=== PATIENT | male | born 1940 | race Caucasian/White ===

== ENCOUNTER 2017-09-01 18:58 | Emergency (ER) | payer MEDICARE, BC ==
--- NOTE | 2017-09-01 19:41 | EDM.PDOC ---
ED HPI GENERAL MEDICAL PROBLEM - General Chief Complaint: Chest Pain Stated Complaint: HEART Time Seen by Provider: 09/01/17 19:15 Source of Information: Reports: Patient, Family History Limitations: Reports: No Limitations - History of Present Illness INITIAL COMMENTS - FREE TEXT/NARRATIVE: 73-year-old male with known coronary artery disease, had an angiogram with stent placement just over one month ago, a follow-up evaluation after chest pain recurred and he had 3 additional stents placed one week ago. He was increasing activity today with a brisk walk, was sitting in a hot tub tonight and had some wine and developed upper back and posterior neck discomfort. No shortness of breath, no diaphoresis, no chest discomfort initially, however when the neck pain started to calm down he had a localized upper right anterior chest discomfort. It was not pleuritic in nature, did not worsen with activity or movement. He called the nurse hotline and they told him to come in to be checked. His pain basically resolved on the way in. When he arrived he was stable, normal vitals, his initial EKG showed no significant ST changes. He was in a sinus rhythm. No nausea or vomiting, denies abdominal pain, jaw pain, extremity discomfort. Onset: Sudden Right Chest Pain Score (Numeric/FACES): 1 - Related Data Allergies Allergy/AdvReac Type Severity Reaction Status Date / Time tamsulosin [From Flomax] Allergy Itching Verified 09/01/17 19:05 valsartan [From Diovan] Allergy Rash Verified 09/01/17 19:05 Home Meds: Home Meds Alfuzosin [Uroxatral] 10 mg PO DAILY 08/31/16 [History] Aspirin [Adult Low Dose Aspirin EC] 162 mg PO DAILY 08/31/16 [History] Simvastatin [Simvastatin] 40 mg PO BEDTIME 08/31/16 [History] Clopidogrel [Plavix] 75 mg PO DAILY 09/01/17 [History] Diazepam [Valium] 5 mg PO DAILY PRN 09/01/17 [History] Magnesium 450 mg PO DAILY 09/01/17 [History] Nitroglycerin [Nitrostat] 0.4 mg SL ASDIRECTED PRN 09/01/17 [History] Past Medical History HEENT History: Reports: Hard of Hearing, Impaired Vision Cardiovascular History: Reports: High Cholesterol, [place], Stents Gastrointestinal History: Reports: Colon Polyp Genitourinary History: Reports: Prostate Disorder Musculoskeletal History: Reports: Arthritis, Back Pain, Chronic, Gout Neurological History: Reports: Concussion Oncologic (Cancer) History: Reports: Basal Cell Carcinoma - Infectious Disease History Infectious Disease History: Reports: Chicken Pox, Measles - Past Surgical History HEENT Surgical History: Reports: Cataract Surgery, Tonsillectomy Cardiovascular Surgical History: Reports: Coronary Artery Stent GI Surgical History: Reports: Appendectomy, Colonoscopy, Polypectomy, Other ( See Below) Other GI Surgeries/Procedures: partial colectomy (12inches) Male Surgical History: Reports: TURP-Transurethral Resection of Prostate Musculoskeletal Surgical History: Reports: Shoulder Surgery Social & Family History - Tobacco Use Smoking Status *Q: Never Smoker - Caffeine Use Caffeine Use: Reports: Coffee - Alcohol Use Days Per Week of Alcohol Use: 7 Number of Drinks Per Day: 2 Total Drinks Per Week: 14 - Recreational Drug Use Recreational Drug Use: No ED ROS GENERAL - Review of Systems Review Of Systems: See Below Constitutional: Denies: Fever, Chills HEENT: Reports: No Symptoms Respiratory: Denies: Shortness of Breath, Pleuritic Chest Pain Cardiovascular: Reports: Chest Pain GI/Abdominal: Denies: Abdominal Pain, Nausea, Vomiting : Reports: No Symptoms Musculoskeletal: Reports: Neck Pain, Back Pain Skin: Reports: No Symptoms. Denies: Pallor, Diaphoresis Neurological: Reports: No Symptoms. Denies: Headache ED EXAM, GENERAL - Physical Exam Exam: See Below Exam Limited By: No Limitations General Appearance: Alert, No Apparent Distress Eye Exam: Bilateral Eye: Normal Inspection Neck: Normal Inspection, Other (No pain with palpation or range of motion) Respiratory/Chest: No Respiratory Distress, Lungs Clear, Chest Non-Tender (I cannot reproduce chest pain with palpation) Cardiovascular: Regular Rate, Rhythm GI/Abdominal: Soft, Non-Tender Extremities: Normal Inspection. No: Pedal Edema Neurological: Alert, Oriented Psychiatric: Normal Affect, Normal Mood Skin Exam: Warm, Dry EKG INTERPRETATION Rhythm: NSR Course - Vital Signs Last Recorded V/S: Last Vital Signs Temp 97.5 F 09/01/17 19:42 Pulse 67 09/01/17 23:15 Resp 13 09/01/17 23:15 BP 142/73 H 09/01/17 23:15 Pulse Ox 95 09/01/17 23:15 - Orders/Labs/Meds Orders: Active Orders 24 hr Category Date Time Status Chest 1V Frontal [CR] Stat Exams 09/01/17 19:36 Taken Labs: Laboratory Tests 09/01/17 09/01/17 09/01/17 Range/Units 19:48 19:48 23:02 WBC 6.4 (4.5-11.0) K/uL RBC 4.22 L (4.30-5.90) M/uL Hgb 13.4 (12.0-15.0) g/dL Hct 40.3 (40.0-54.0) % MCV 96 (80-98) fL MCH 32 H (27-31) pg MCHC 33 (32-36) % Plt Count 178 (150-400) K/uL Neut % (Auto) 47 (36-66) % Lymph % (Auto) 38 (24-44) % Cross % (Auto) 11 H (2-6) % Eos % (Auto) 3 (2-4) % Baso % (Auto) 1 (0-1) % Sodium 145 (140-148) mmol/L Potassium 3.7 (3.6-5.2) mmol/L Chloride 109 H (100-108) mmol/L Carbon Dioxide 28 (21-32) mmol/L Anion Gap 11.7 (5.0-14.0) mmol/L BUN 19 H (7-18) mg/dL Creatinine 1.0 (0.8-1.3) mg/dL Est Cr Clr Drug Dosing 72.76 mL/min Estimated GFR (MDRD) > 60 (>60) Glucose 109 H (74-106) mg/dL Calcium 9.0 (8.5-10.1) mg/dL Troponin I 0.252 H* 0.250 H* (0.000-0.056) ng/mL - Re-Assessments/Exams Free Text/Narrative Re-Assessment/Exam: 09/01/17 19:53 EKG was normal, patient's symptoms had resolved. A 1 view chest x-ray was obtained to rule out any small pneumothorax or pulmonary injury from his recent procedures. Also jesus a CBC BMP and troponin. Patient was observed but no treatment given pending lab and x-ray results. 09/01/17 21:50 The patient's pain did not recur however the troponin came back elevated at 0.252. I discussed this with cardiology in [place], with a procedure he had one week ago this could be expected but they recommended a repeat troponin in 4 hours. Patient was observed for 4 hours while waiting for the repeat troponin. 09/01/17 23:33 Repeat troponin was 0.250. Patient's symptoms did not recur so he was discharged home. Departure - Departure Time of Disposition: 23:53 Disposition: Home, Self-Care 01 Condition: Good Clinical Impression: Atypical chest pain - Discharge Information Instructions: Nonspecific Chest Pain, [id number] Referrals: Trey Martinez MD [Primary Care Provider] - Forms: ED Department Discharge Care Plan Goals: Continue your current medications and increase activity as tolerated. Recheck as scheduled or return anytime sooner if worsening or concerns. - My Orders Last 24 Hours: My Active Orders 09/01/17 19:36 Chest 1V Frontal [CR] Stat - Assessment/Plan Last 24 Hours: My Active Orders 09/01/17 19:36 Chest 1V Frontal [CR] Stat
[2017-09-01 23:53] VITALS: BP 142/73
--- NOTE | 2017-09-02 09:02 | CR ---
Chest 1V Frontal HISTORY: Upper chest pain. COMPARISON: 05/29/2011. FINDINGS: Stable elevation of the left hemidiaphragm. Rotated film. No focal infiltrates or effusions . No pneumothorax. Impression: Stable chest no acute pulmonary disease.
== END 2017-09-01 23:54 | disposition home or self-care (01) ==
LOC: JP.ED 18:58
DX: R07.89 Other chest pain (principal); I25.10 Atherosclerotic heart disease of native coronary artery without angina pectoris; E78.00 Pure hypercholesterolemia, unspecified; Z95.5 Presence of coronary angioplasty implant and graft; Z79.82 Long term (current) use of aspirin; Z79.02 Long term (current) use of antithrombotics/antiplatelets; Z79.899 Other long term (current) drug therapy; Z88.8 Allergy status to other drugs, medicaments and biological substances
CPT/HCPCS: 36415; 71010; 71010-26; 80048; 84484; 85025; 93005; 93010; 99285

== ENCOUNTER 2019-09-05 07:20 | Emergency (ER) | payer MEDICARE, BC ==
[2019-09-05 07:56] VITALS: BP 170/94; PULSE 60
[2019-09-05] MEDS ORDERED: Ketorolac 30 MG/ML SDV IM ONE (08:10)
--- NOTE | 2019-09-05 08:16 | EDM.PDOC ---
ED HPI GENERAL MEDICAL PROBLEM - General Chief Complaint: Lower Extremity Injury/Pain Stated Complaint: LEFT HIP PAIN Time Seen by Provider: 09/05/19 08:00 Source of Information: Reports: Patient, Old Records, RN History Limitations: Reports: No Limitations - History of Present Illness INITIAL COMMENTS - FREE TEXT/NARRATIVE: 78 yo male was at [employer] yesterday late afternoon and bent over to genuflect and felt a pop in his L hip. Initially he was unable to bear any weight in that hip, the pain bothered him all night. The pain is slightly better this morning. He has never had surgery or significant pain in that hip before. He took nothing for the pain before coming in to the ER with his via car today. 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: Other (see below) (none) Left Hip Pain Score (Numeric/FACES): 1 - Related Data Allergies Allergy/AdvReac Type Severity Reaction Status Date / Time tamsulosin [From Flomax] Allergy Itching Verified 09/11/18 10:08 valsartan [From Diovan] Allergy Rash Verified 09/11/18 10:08 Home Meds: Home Meds Aspirin [Adult Low Dose Aspirin EC] 162 mg PO DAILY 08/31/16 [History] Simvastatin 40 mg PO BEDTIME 08/31/16 [History] Diazepam [Valium] 5 mg PO DAILY PRN 09/01/17 [History] Magnesium 450 mg PO DAILY 09/01/17 [History] Nitroglycerin [Nitrostat] 0.4 mg SL ASDIRECTED PRN 09/01/17 [History] Acetaminophen/HYDROcodone [[place] 325-5 MG] 1 - 2 tab PO Q6H 09/11/18 [History] Past Medical History HEENT History: Reports: Hard of Hearing, Impaired Vision Cardiovascular History: Reports: High Cholesterol, [place], Stents Gastrointestinal History: Reports: Colon Polyp Genitourinary History: Reports: Prostate Disorder Musculoskeletal History: Reports: Arthritis, Back Pain, Chronic, Gout Neurological History: Reports: Concussion Oncologic (Cancer) History: Reports: Basal Cell Carcinoma - Infectious Disease History Infectious Disease History: Reports: Chicken Pox, Measles - Past Surgical History HEENT Surgical History: Reports: Cataract Surgery, Tonsillectomy Cardiovascular Surgical History: Reports: Coronary Artery Stent GI Surgical History: Reports: Appendectomy, Colonoscopy, Polypectomy, Other ( See Below) Other GI Surgeries/Procedures: partial colectomy (12inches) Male Surgical History: Reports: TURP-Transurethral Resection of Prostate Musculoskeletal Surgical History: Reports: Shoulder Surgery Social & Family History - Tobacco Use Smoking Status *Q: Former Smoker Used Tobacco, but Quit: Yes Month/Year Tobacco Last Used: many years ago - Caffeine Use Caffeine Use: Reports: Coffee - Recreational Drug Use Recreational Drug Use: No Review of Systems - Review of Systems Review Of Systems: Comprehensive ROS is negative, except as noted in HPI. Musculoskeletal: Reports: Joint Pain (L hip) Skin: Reports: No Symptoms Neurological: Reports: No Symptoms ED EXAM, GENERAL - Physical Exam Exam: See Below Exam Limited By: No Limitations General Appearance: Alert, WD/WN, No Apparent Distress Extremities: Normal Inspection, Normal Range of Motion, No Pedal Edema, Other ( Able to put the L hip through a fairly full ROM, there is some pain with this. According to patient much less than it would have been earlier. ). No: Non- Tender, Joint Swelling, Limited Range of Motion Neurological: Alert, Oriented, CN II-XII Intact, Normal Cognition, No Motor/ Sensory Deficits Course - Vital Signs Last Recorded V/S: Last Vital Signs Temp 35.2 C 09/05/19 08:09 Pulse 60 09/05/19 08:09 Resp 13 09/05/19 08:09 BP 170/94 H 09/05/19 08:09 Pulse Ox 94 L 09/05/19 08:09 - Orders/Labs/Meds Meds: Medications Discontinued Medications Generic Name Dose Route Start Last Admin Trade Name Freq PRN Reason Stop Dose Admin Ketorolac Tromethamine 30 mg 09/05/19 08:10 09/05/19 08:15 Toradol IM 09/05/19 08:11 30 mg ONETIME ONE Administration - Radiology Interpretation Free Text/Narrative:: L hip X-ray- IMPRESSION: Negative left hip. Dictated by Berny Eli MD Departure - Departure Time of Disposition: :17 Disposition: Home, Self-Care 01 Condition: Good Clinical Impression: Left hip pain - Discharge Information *PRESCRIPTION DRUG MONITORING PROGRAM REVIEWED*: No *COPY OF PRESCRIPTION DRUG MONITORING REPORT IN PATIENT STEPHANY: No Referrals: Trey Martinez MD [Primary Care Provider] - Forms: ED Department Discharge Additional Instructions: Rest for a couple days. Use ibuprofen 400 mg every 6 hrs with food for a couple days, next dose after 2 pm today. Recheck in the clinic if your pain is not completely gone by Friday.
--- NOTE | 2019-09-05 09:11 | CRLCR ---
INDICATION: Left hip pain. TECHNIQUE: Two views of the left hip. COMPARISON: None. FINDINGS: Normal joint space. No chondrocalcinosis or erosive change. IMPRESSION: Negative left hip. Dictated by Berny Eli MD @ Sep 05 2019 9:10AM Signed by Dr. Berny Eli @ Sep 05 2019 9:11AM
== END 2019-09-05 09:45 | disposition home or self-care (01) ==
LOC: JP.ED 07:20
DX: M25.552 Pain in left hip (principal); I25.2 Old myocardial infarction; E78.00 Pure hypercholesterolemia, unspecified; Z88.8 Allergy status to other drugs, medicaments and biological substances; Z79.82 Long term (current) use of aspirin; Z79.899 Other long term (current) drug therapy; Z85.828 Personal history of other malignant neoplasm of skin; X50.1XXA Overexertion from prolonged static or awkward postures, initial encounter
CPT/HCPCS: 73502; 96372; 99283; J1885; 99282

== ENCOUNTER 2020-06-27 12:15 | Emergency (ER) | payer MEDICARE, BC ==
[2020-06-27] MEDS ORDERED: Aspirin 81 MG Tab.Chew PO ONE (12:22)
--- NOTE | 2020-06-27 12:28 | EDM.PDOC ---
ED HPI GENERAL MEDICAL PROBLEM - General Chief Complaint: Chest Pain Stated Complaint: CHEST PAIN Time Seen by Provider: 06/27/20 12:22 Source of Information: Reports: Patient, RN Notes Reviewed History Limitations: Reports: No Limitations - History of Present Illness INITIAL COMMENTS - FREE TEXT/NARRATIVE: 79-year-old gentleman presents emergency department with a complaint of chest pain, he states that chest pain on and off for the last 10 days or so very brief moments but today the chest pain was more intense predominantly in the epigastric region there is no shortness of breath no nausea vomiting no diaphoresis with this chest pain. Does have a known history of coronary artery disease last stenting a couple years ago. He did take 3 nitro no aspirin rates his chest pain at 1 at this time Chest Pain Score (Numeric/FACES): 1 - Related Data Allergies Allergy/AdvReac Type Severity Reaction Status Date / Time tamsulosin [From Flomax] Allergy Itching Verified 06/27/20 12:28 valsartan [From Diovan] Allergy Rash Verified 06/27/20 12:28 Home Meds: Home Meds Aspirin [Adult Low Dose Aspirin EC] 81 mg PO DAILY 08/31/16 [History] Simvastatin 40 mg PO DAILY 08/31/16 [History] Magnesium 450 mg PO DAILY 09/01/17 [History] Nitroglycerin [Nitrostat] 0.4 mg SL ASDIRECTED PRN 09/01/17 [History] diazePAM [Valium] 5 mg PO DAILY PRN 09/01/17 [History] Acetaminophen/HYDROcodone [[place] 325-5 MG] 1 - 2 tab PO Q6H 09/11/18 [History] Alfuzosin HCl [Alfuzosin HCl ER] 10 mg PO DAILY 06/27/20 [History] hydroCHLOROthiazide [Hydrochlorothiazide] 25 mg PO DAILY 06/27/20 [History] Past Medical History HEENT History: Reports: Hard of Hearing, Impaired Vision Cardiovascular History: Reports: CAD, High Cholesterol, [place], Stents Gastrointestinal History: Reports: Colon Polyp Genitourinary History: Reports: Prostate Disorder Musculoskeletal History: Reports: Arthritis, Back Pain, Chronic, Gout Neurological History: Reports: Concussion Oncologic (Cancer) History: Reports: Basal Cell Carcinoma - Infectious Disease History Infectious Disease History: Reports: Chicken Pox, Measles - Past Surgical History HEENT Surgical History: Reports: Cataract Surgery, Tonsillectomy Cardiovascular Surgical History: Reports: Coronary Artery Stent GI Surgical History: Reports: Appendectomy, Colonoscopy, Polypectomy, Other (See Below) Other GI Surgeries/Procedures: partial colectomy (12inches) Male Surgical History: Reports: TURP-Transurethral Resection of Prostate Musculoskeletal Surgical History: Reports: Shoulder Surgery Social & Family History - Caffeine Use Caffeine Use: Reports: Coffee ED ROS GENERAL - Review of Systems Review Of Systems: See Below Constitutional: Reports: No Symptoms HEENT: Reports: No Symptoms Respiratory: Reports: No Symptoms Cardiovascular: Reports: Chest Pain GI/Abdominal: Reports: No Symptoms : Reports: No Symptoms Musculoskeletal: Reports: No Symptoms ED EXAM, GENERAL - Physical Exam Exam: See Below Exam Limited By: No Limitations General Appearance: Alert, WD/WN, No Apparent Distress Respiratory/Chest: No Respiratory Distress, Lungs Clear, Normal Breath Sounds, No Accessory Muscle Use, Chest Non-Tender Cardiovascular: Regular Rate, Rhythm, No Murmur GI/Abdominal: Normal Bowel Sounds, Soft, No Distention, Tender (Epigastric region) Extremities: No Pedal Edema Course - Vital Signs Last Recorded V/S: Last Vital Signs Temp 97.6 F 06/27/20 12:15 Pulse 61 06/27/20 15:12 Resp 15 06/27/20 15:12 BP 123/67 06/27/20 15:12 Pulse Ox 93 L 06/27/20 15:12 - Orders/Labs/Meds Orders: Active Orders 24 hr Category Date Time Status Cardiac Monitoring [RC] .As Directed Care 06/27/20 12:22 Active EKG Documentation Completion [RC] ASDIRECTED Care 06/27/20 12:24 Active Morphine Med 06/27/20 12:22 Active 4 mg IVPUSH Q10M PRN EKG 12 Lead [EK] Stat Ther 06/27/20 12:24 Ordered Medication Orders Morphine Sulfate (Morphine) 4 mg IVPUSH Q10M PRN PRN Reason: Chest Pain Stop: 06/28/20 12:22 Last Admin: 06/27/20 14:10 Dose: 4 mg Documented by: Admin: 06/27/20 13:07 Dose: 4 mg Documented by: PREILOR Labs: Laboratory Tests 06/27/20 06/27/20 06/27/20 Range/Units 12:34 12:34 14:36 WBC 7.0 (4.5-11.0) K/uL RBC 4.24 L (4.30-5.90) M/uL Hgb 13.7 (12.0-15.0) g/dL Hct 41.9 (40.0-54.0) % MCV 99 H (80-98) fL MCH 32 H (27-31) pg MCHC 33 (32-36) % Plt Count 224 (150-400) K/uL Neut % (Auto) 61 (36-66) % Lymph % (Auto) 25 (24-44) % [place] % (Auto) 12 H (2-6) % Eos % (Auto) 2 (2-4) % Baso % (Auto) 0 (0-1) % Sodium 141 (140-148) mmol/L Potassium 3.2 L (3.6-5.2) mmol/L Chloride 104 (100-108) mmol/L Carbon Dioxide 26 (21-32) mmol/L Anion Gap 14.2 H (5.0-14.0) mmol/L BUN 17 (7-18) mg/dL Creatinine 1.1 (0.8-1.3) mg/dL Est Cr Clr Drug Dosing 61.23 mL/min Estimated GFR (MDRD) > 60 (>60) Glucose 99 (74-106) mg/dL Calcium 9.1 (8.5-10.1) mg/dL Total Bilirubin 0.6 D (0.2-1.0) mg/dL AST 25 (15-37) U/L ALT 28 (12-78) U/L Alkaline Phosphatase 73 (46-116) U/L Troponin I < 0.017 < 0.017 (0.000-0.056) ng/mL Total Protein 6.3 L (6.4-8.2) g/dL Albumin 3.1 L (3.4-5.0) g/dL Globulin 3.2 (2.3-3.5) g/dL Albumin/Globulin Ratio 1.0 L (1.2-2.2) Meds: Medications Generic Name Dose Route Start Last Admin Trade Name Freq PRN Reason Stop Dose Admin Morphine Sulfate 4 mg 06/27/20 12:22 06/27/20 14:10 Morphine IVPUSH 06/28/20 12:22 4 mg Q10M PRN Administration Chest Pain Discontinued Medications Generic Name Dose Route Start Last Admin Trade Name [place] PRN Reason Stop Dose Admin Aspirin 324 mg 06/27/20 12:22 06/27/20 12:57 Aspirin PO 06/27/20 12:23 324 mg ONETIME ONE Administration - Re-Assessments/Exams Free Text/Narrative Re-Assessment/Exam: 06/27/20 13:39 I did review lab work EKG chest x-ray results with him thus far the work-up has been unrevealing for the etiology of chest pain, his heart score is 4 puts him at moderate risk I did offer him admission however we have no beds at this time he declined transfer therefore we are going to recheck the troponin in a couple of hours and then reevaluate Departure - Departure Time of Disposition: 15:16 Disposition: Home, Self-Care 01 Condition: Fair Clinical Impression: Atypical chest pain Instructions: Nonspecific Chest Pain, Adult Referrals: Trey Martinez MD [Primary Care Provider] - Forms: ED Department Discharge Additional Instructions: Try a product such as Zantac once a day follow-up with your primary care in the next 3 to 5 days for reevaluation, call return to the emergency department worsening of symptoms Sepsis Event Note (ED) - Focused Exam Vital Signs: Vital Signs Temp Pulse Resp BP Pulse Ox 06/27/20 15:12 61 15 123/67 93 L 06/27/20 14:09 58 L 14 115/67 93 L 06/27/20 13:11 69 16 103/63 94 L 06/27/20 12:35 69 16 113/65 95 06/27/20 12:15 97.6 F 77 14 114/75 95 - My Orders Last 24 Hours: My Active Orders 06/27/20 12:22 Cardiac Monitoring [RC] .As Directed Morphine 4 mg IVPUSH Q10M PRN 06/27/20 12:24 EKG Documentation Completion [RC] ASDIRECTED EKG 12 Lead [EK] Stat - Assessment/Plan Last 24 Hours: My Active Orders 06/27/20 12:22 Cardiac Monitoring [RC] .As Directed Morphine 4 mg IVPUSH Q10M PRN 06/27/20 12:24 EKG Documentation Completion [RC] ASDIRECTED EKG 12 Lead [EK] Stat Plan: Assessment Acuity = acute Site and laterality = atypical chest pain Etiology = unknown Manifestations = none Location of injury = Home Lab values = CBC, CMP unremarkable troponin negative x2 EKG demonstrates sinus rhythm there is no ST elevation or depressions appreciated Plan Observe for several hours, I talked to him about hospital admission he declined at this time he is can follow-up with his primary care in the next 3 to 5 days for further evaluation in the meantime he is going to try reflux type medications to see if this helps alleviate his pain it seems to be exacerbated by food lying down or bending over This note was dictated using [employer] voice recognition software please call with any questions on syntax or grammar.
[2020-06-27] MEDS: Morphine 4 MG/ML Syringe IVPUSH PRN ×2 (13:07→14:10)
--- NOTE | 2020-06-27 13:15 | CR ---
CHEST: Portable 06/27/2020 at 12:46 PM CLINICAL HISTORY:Chest pain COMPARISON:2010 FINDINGS: There is chronic elevation left hemidiaphragm. Heart size and pulmonary vascularity are normal. No infiltrate effusion or pneumothorax is. There is some patchy density in left lower lung field. This is likely some patchy atelectasis. Impression: Chronic elevation left hemidiaphragm No acute cardiopulmonary process
[2020-06-27 15:12] VITALS: BP 123/67; PULSE 61
== END 2020-06-27 15:47 | disposition home or self-care (01) ==
LOC: JP.ED 12:15
DX: R07.89 Other chest pain (principal); I25.10 Atherosclerotic heart disease of native coronary artery without angina pectoris; E78.00 Pure hypercholesterolemia, unspecified; I25.2 Old myocardial infarction; M19.90 Unspecified osteoarthritis, unspecified site; Z90.49 Acquired absence of other specified parts of digestive tract; Z88.8 Allergy status to other drugs, medicaments and biological substances; Z79.82 Long term (current) use of aspirin; Z79.899 Other long term (current) drug therapy
CPT/HCPCS: 36415; 71045; 80053; 84484; 85025; 93005; 93010; 96374; 96376; 99285; A9270; J2270; 99284

== ENCOUNTER 2020-07-14 08:15 | Day surgery (SDC) | payer MEDICARE, BC ==
[2020-07-14] MEDS ORDERED: Dextrose 5%-Lactated Ringers 1,000 ML IV SCH (08:45)
[2020-07-14] MEDS ORDERED: Propofol 200 MG/20 ML SDV ONE (08:53)
[2020-07-14] MEDS ORDERED: Midazolam 1 MG/ML 2 ML SDV ONE (08:53)
[2020-07-14] MEDS ORDERED: fentaNYL 100 MCG/2 ML SDV ONE (08:53)
[2020-07-14] MEDS ORDERED: Pantoprazole 40 MG Vial IVPUSH ONE (10:55)
[2020-07-14 11:58] VITALS: BP 138/77; PULSE 67
--- NOTE | 2020-07-20 08:11 | OR ---
DATE OF PROCEDURE: 07/14/2020 SURGEON: Sadiq Hairston MD PREOPERATIVE DIAGNOSIS: Upper abdominal pain. POSTOPERATIVE DIAGNOSES: 1. 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 2. Mild distal gastritis. OPERATIVE PROCEDURE: Esophagogastroduodenoscopy with: 1. Biopsies of esophagogastric junction for histologic evaluation. 2. Biopsies of antrum for CLOtest. ANESTHESIA: IV sedation. INDICATION FOR PROCEDURE: An 79-year-old male, presenting with problems with upper abdominal pain and chest pain. The patient did have a CCK-stimulated HIDA scan which showed below normal ejection fraction, with CCK injection reproducing some nausea, but not overt pain per se. The patient had been started on Pepcid 40 mg b.i.d. roughly 2 weeks and feels this may have helped slightly, but is unsure if this can improve beyond the small additional initial improvement. The plan is proceed with an upper GI endoscopy with biopsies as indicated. Potential risks including bleeding and perforation were discussed, and the patient wishes to proceed. DETAILS OF PROCEDURE: The patient was taken to the operating room and placed in a left lateral decubitus position. IV sedation was administered, after which the upper GI endoscope was passed orally through the length of the esophagus and into the stomach with retroflexion view of the fundus, thereafter through the pyloric channel into the proximal duodenum. Findings included normal hypopharynx, larynx, upper esophageal sphincter, and esophageal body. At the EG junction, there was a small hiatal hernia. 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 There were also 2 areas of linear ulceration present. No stricturing or plaquing or other signs of neoplastic change were obvious. In the stomach, there was some patchy redness in the antrum, otherwise pyloric channel and duodenum to the junction of the 3rd and 4th portions were unremarkable. At this point, biopsies were obtained from the antrum and sent for CLOtest for H. pylori. Multiple biopsies were obtained from the esophagogastric junction and sent for histologic evaluation. Minimal bleeding from the biopsy sites was seen and the procedure was then concluded. At this point, we will switch the patient over to Protonix 40 mg IV in the recovery room and then 40 mg daily. We will see the patient back in roughly 2 weeks. If he is still having episodes of right upper quadrant pain, then may be appropriate at that point to proceed with cholecystectomy given the CCK-stimulated HIDA scan findings. Sadiq Hairston MD /[id number]
== END 2020-07-14 11:59 | disposition home or self-care (01) ==
LOC: JP.SDS 08:15
PROVIDERS: ATTEND Surgery
DX: K25.9 Gastric ulcer, unspecified as acute or chronic, without hemorrhage or perforation (principal); K44.9 Diaphragmatic hernia without obstruction or gangrene; K29.50 Unspecified chronic gastritis without bleeding; K21.00 Gastro-esophageal reflux disease with esophagitis, without bleeding; E78.5 Hyperlipidemia, unspecified; I25.10 Atherosclerotic heart disease of native coronary artery without angina pectoris
CPT/HCPCS: 43239; 87081; 88305; 88312; C9113; J2250; J2704; J3010; J7121

== ENCOUNTER 2022-02-02 13:54 | Observation (INO) | payer MEDICARE, BC ==
[2022-02-02] MEDS ORDERED: Sodium Chloride 0.9% 10 ML Syringe FLUSH PRN (14:03)
[2022-02-02] MEDS ORDERED: fentaNYL 100 MCG/2 ML SDV IVPUSH ONE ×2 (14:05→15:43)
[2022-02-02] MEDS ORDERED: Potassium Chloride 20 MEQ Tab.ER PO ONE (15:01)
[2022-02-02] MEDS ORDERED: Diazepam 5 MG Tab PO PRN (17:44)
[2022-02-02] MEDS ORDERED: LORazepam 2 MG/ML SDV IVPUSH PRN (17:44)
[2022-02-02] MEDS ORDERED: Ondansetron 4 MG Tab.DIS PO PRN (17:44)
[2022-02-02] MEDS ORDERED: Magnesium Hydroxide 400 MG/5 ML Susp 30 ML Cup PO PRN (17:44)
[2022-02-02] MEDS ORDERED: Melatonin 3 MG Tab PO PRN (17:44)
[2022-02-02] MEDS ORDERED: fentaNYL 100 MCG/2 ML SDV IVPUSH PRN (17:44)
[2022-02-02] MEDS ORDERED: Ondansetron 4 MG/2 ML SDV IV PRN (17:44)
[2022-02-02] MEDS ORDERED: tiZANidine 2 MG Tab PO PRN (17:44)
[2022-02-02] MEDS: Acetaminophen 325 MG Tab PO PRN (18:07)
[2022-02-03] MEDS: Acetaminophen 325 MG Tab PO PRN ×4 (00:58→19:46)
[2022-02-03] MEDS ORDERED: Potassium Chloride 20 MEQ Tab.ER PO ONE (09:00)
[2022-02-03] MEDS: Calcium Carbonate/Vitamin D3 1500 MG-400 Units Tab PO SCH (10:06)
[2022-02-03] MEDS: BIOTIN 2500 MCG PO SCH (10:06)
[2022-02-03] MEDS: CHONDROITIN PO SCH (10:08)
[2022-02-03] MEDS: CHOLECALCIFEROL PO SCH (10:08)
[2022-02-03] MEDS: GLUCOSAMINE PO SCH (10:08)
[2022-02-03] MEDS: Aspirin 81 MG Tab.EC PO SCH (10:08)
[2022-02-03] MEDS: Hydrochlorothiazide 25 MG Tab PO SCH (10:09)
[2022-02-03] MEDS: atorvaSTATin 20 MG Tab PO SCH (10:11)
[2022-02-03] MEDS: Magnesium Oxide 400 MG Tab PO SCH (10:12)
[2022-02-03] MEDS: Famotidine 20 MG Tab PO SCH ×2 (10:12→21:50)
[2022-02-03] MEDS: Multivitamins with Iron/Calcium/Folic Acid/Minerals Tab PO SCH (10:13)
[2022-02-03] MEDS: Cyanocobalamin (Vitamin B12) 1,000 MCG Tab PO SCH (10:14)
[2022-02-03] MEDS: Alfuzosin 10 MG Tab.ER PO SCH (10:14)
[2022-02-03] MEDS: CO Q10 PO SCH (10:14)
[2022-02-03] MEDS: Ascorbic Acid 500 MG Tab PO SCH (10:15)
[2022-02-04] MEDS: Hydrochlorothiazide 25 MG Tab PO SCH (10:18)
[2022-02-04] MEDS: Aspirin 81 MG Tab.EC PO SCH (10:20)
[2022-02-04] MEDS: Multivitamins with Iron/Calcium/Folic Acid/Minerals Tab PO SCH (10:20)
[2022-02-04] MEDS: Ascorbic Acid 500 MG Tab PO SCH (10:20)
[2022-02-04] MEDS: Famotidine 20 MG Tab PO SCH ×2 (10:20→20:14)
[2022-02-04] MEDS: Magnesium Oxide 400 MG Tab PO SCH (10:20)
[2022-02-04] MEDS: Alfuzosin 10 MG Tab.ER PO SCH (10:20)
[2022-02-04] MEDS: Cyanocobalamin (Vitamin B12) 1,000 MCG Tab PO SCH (10:21)
[2022-02-04] MEDS: atorvaSTATin 20 MG Tab PO SCH (10:21)
[2022-02-04] MEDS: Calcium Carbonate/Vitamin D3 1500 MG-400 Units Tab PO SCH (10:21)
[2022-02-04] MEDS: BIOTIN 2500 MCG PO SCH (10:22)
[2022-02-04] MEDS: CO Q10 PO SCH (10:23)
[2022-02-04] MEDS: CHOLECALCIFEROL PO SCH (10:23)
[2022-02-04] MEDS: CHONDROITIN PO SCH (10:23)
[2022-02-04] MEDS: GLUCOSAMINE PO SCH (10:23)
[2022-02-04] MEDS: oxyCODONE 5 MG Tab PO PRN (16:09)
[2022-02-04] MEDS: Acetaminophen 325 MG Tab PO PRN ×2 (16:09→20:17)
[2022-02-05] MEDS: Famotidine 20 MG Tab PO SCH (08:31)
[2022-02-05] MEDS: Aspirin 81 MG Tab.EC PO SCH (08:31)
[2022-02-05] MEDS: Multivitamins with Iron/Calcium/Folic Acid/Minerals Tab PO SCH (08:32)
[2022-02-05] MEDS: Hydrochlorothiazide 25 MG Tab PO SCH (08:32)
[2022-02-05] MEDS: atorvaSTATin 20 MG Tab PO SCH (08:32)
[2022-02-05] MEDS: Calcium Carbonate/Vitamin D3 1500 MG-400 Units Tab PO SCH (08:32)
[2022-02-05] MEDS: GLUCOSAMINE PO SCH (08:33)
[2022-02-05] MEDS: CO Q10 PO SCH (08:33)
[2022-02-05] MEDS: CHONDROITIN PO SCH (08:33)
[2022-02-05] MEDS: Magnesium Oxide 400 MG Tab PO SCH (08:33)
[2022-02-05] MEDS: Cyanocobalamin (Vitamin B12) 1,000 MCG Tab PO SCH (08:33)
[2022-02-05] MEDS: BIOTIN 2500 MCG PO SCH (08:33)
[2022-02-05] MEDS: Ascorbic Acid 500 MG Tab PO SCH (08:33)
[2022-02-05] MEDS: CHOLECALCIFEROL PO SCH (08:33)
[2022-02-05] MEDS: Alfuzosin 10 MG Tab.ER PO SCH (08:33)
[2022-02-05] MEDS: oxyCODONE 5 MG Tab PO PRN ×2 (10:27→14:23)
[2022-02-05 11:06] VITALS: BP 110/56; PULSE 82
== END 2022-02-05 16:00 | disposition home health service (06) ==
LOC: JP.ED 13:54 → JP.MS 17:23
PROVIDERS: ADMIT Internal Medicine; ATTEND Hospitalist
DX: S70.02XA Contusion of left hip, initial encounter (principal); I25.10 Atherosclerotic heart disease of native coronary artery without angina pectoris; E78.00 Pure hypercholesterolemia, unspecified; I25.2 Old myocardial infarction; E87.6 Hypokalemia; Z98.890 Other specified postprocedural states; W18.30XA Fall on same level, unspecified, initial encounter; Z88.8 Allergy status to other drugs, medicaments and biological substances; Z79.82 Long term (current) use of aspirin; Z79.899 Other long term (current) drug therapy
CPT/HCPCS: 36415; 73521; 73521-26; 80048; 85025; 85027; 93005; 93010; 96374; 96376; 97110-GP; 97116-GP; 97162-GP; 97165-GO; 97530-GP; 99284; 99285-25; A9270-GY; G0378; J3010

== ENCOUNTER 2023-05-15 06:29 | Day surgery (SDC) | payer MEDICARE, BC ==
[2023-05-15] MEDS ORDERED: Propofol 200 MG/20 ML SDV ONE (07:00)
[2023-05-15] MEDS ORDERED: Dextrose 5%-Lactated Ringers 1,000 ML IV SCH (07:00)
[2023-05-15] MEDS ORDERED: fentaNYL 50 MCG/ML SDV ONE (07:01)
[2023-05-15] MEDS ORDERED: Ampicillin/Sulbactam Na 3 GM in Sodium Chloride 0.9% 100 ML IV ONE (07:30)
[2023-05-15] MEDS ORDERED: Pantoprazole 40 MG Vial IVPUSH ONE (09:00)
[2023-05-15 11:01] VITALS: BP 138/75; PULSE 59
== END 2023-05-15 10:30 | disposition home or self-care (01) ==
LOC: JP.SDS 06:29
PROVIDERS: ATTEND Surgery
DX: K21.00 Gastro-esophageal reflux disease with esophagitis, without bleeding (principal); K44.9 Diaphragmatic hernia without obstruction or gangrene; K22.10 Ulcer of esophagus without bleeding; K29.80 Duodenitis without bleeding; K29.70 Gastritis, unspecified, without bleeding; K22.89 Other specified disease of esophagus; I25.10 Atherosclerotic heart disease of native coronary artery without angina pectoris; E78.00 Pure hypercholesterolemia, unspecified; Z88.8 Allergy status to other drugs, medicaments and biological substances
CPT/HCPCS: 87081; 88305; C9113; J0295; J2704; J3010; J3490; J7121

== ENCOUNTER 2024-03-03 23:03 | Emergency (ER) | payer MEDICARE, BC ==
[2024-03-03 23:22] VITALS: BP 137/62; PULSE 73
== END 2024-03-03 23:41 | disposition home or self-care (01) ==
LOC: JP.ED 23:03
DX: S90.862A Insect bite (nonvenomous), left foot, initial encounter (principal); I25.10 Atherosclerotic heart disease of native coronary artery without angina pectoris; I25.2 Old myocardial infarction; K21.9 Gastro-esophageal reflux disease without esophagitis; Z88.1 Allergy status to other antibiotic agents; Z88.8 Allergy status to other drugs, medicaments and biological substances; Z95.5 Presence of coronary angioplasty implant and graft; Z79.82 Long term (current) use of aspirin; Z79.899 Other long term (current) drug therapy; Z86.16 Personal history of COVID-19; Z87.891 Personal history of nicotine dependence; W57.XXXA Bitten or stung by nonvenomous insect and other nonvenomous arthropods, initial encounter
CPT/HCPCS: 99281; 99283

== ENCOUNTER 2024-06-28 14:06 | Emergency (ER) | payer MEDICARE, BC, OTHER ==
[2024-06-28 15:02] LABS: BASOPHILS ABSOLUTE AUTO 0.02 K/uL (0.00-0.10); BASOPHILS PERCENT AUTO 0.3 % (0.1-1.3); EOSINOPHILS ABSOLUTE AUTO 0.07 K/uL (0.00-0.40); HEMATOCRIT 39.4 % (38.4-49.7); IMMATURE GRAN ABSOLUTE AUTO 0.04 K/uL (0.00-0.23); IMMATURE GRAN PERCENT AUTO 0.6 % (0.0-0.7); LYMPHOCYTES ABSOLUTE AUTO 1.41 K/uL (0.8-3.3); LYMPHOCYTES PERCENT AUTO 20.6 % (11.4-47.7); MEAN CORPUSCULAR HEMOGLOBIN 29.4 pg (31.6-35.5); MEAN CORPUSCULAR VOLUME 89.1 fL (81.4-99.0); MONOCYTES ABSOLUTE AUTO 0.35 K/uL (0.20-0.90); MONOCYTES PERCENT AUTO 5.1 % (3.3-12.6); NEUTROPHILS ABSOLUTE AUTO 4.97 K/uL (1.0-7.6); NEUTROPHILS PERCENT AUTO 72.4 % (40.0-78.1); PLATELET COUNT,PLT 116 K/uL (130-375); RED BLOOD CELL COUNT 4.42 M/uL (4.14-5.76); WHITE BLOOD CELL COUNT,WBC 6.9 K/uL (3.2-11.0)
[2024-06-28 15:18] LABS: CALCIUM 9.5 mg/dL (8.5-10.1); CREATININE 1.1 mg/dL (0.8-1.3); EST CRCL DRUG DOSING (CG) 57.08 mL/min; POTASSIUM,K 3.8 mmol/L (3.6-5.2)
[2024-06-28 15:19] LABS: ANION GAP 12.8 mmol/L (5.0-14.0)
[2024-06-28] MEDS ORDERED: Naloxone 0.4 MG/ML SDV IVPUSH PRN (15:41)
[2024-06-28] MEDS: Iopamidol 612 MG/ML 100 ML Bottle IV PRN (15:54)
[2024-06-28] MEDS: Sodium Chloride 0.9% 100 ML IV ONE (15:54)
[2024-06-28] MEDS: Sodium Chloride 0.9% 10 ML Syringe FLUSH PRN (15:54)
[2024-06-28] MEDS: HYDROmorphone 0.5 MG/0.5 ML Syringe IVPUSH ONE ×2 (15:58→18:52)
[2024-06-28 18:13] VITALS: BP 160/89; PULSE 69
== END 2024-06-28 19:36 | disposition other institution (70) ==
LOC: JP.ED 14:06
DX: S22.42XA Multiple fractures of ribs, left side, initial encounter for closed fracture (principal); I25.10 Atherosclerotic heart disease of native coronary artery without angina pectoris; I25.2 Old myocardial infarction; E78.00 Pure hypercholesterolemia, unspecified; M19.90 Unspecified osteoarthritis, unspecified site; Z86.16 Personal history of COVID-19; Z79.82 Long term (current) use of aspirin; Z79.899 Other long term (current) drug therapy; Z88.8 Allergy status to other drugs, medicaments and biological substances; V87.8XXA Person injured in other specified noncollision transport accidents involving motor vehicle (traffic), initial encounter; Y92.410 Unspecified street and highway as the place of occurrence of the external cause
CPT/HCPCS: 36415; 70450; 71260; 72125; 74177; 76377; 80048; 85025; 96374; 96376; 99284; 99285; J1170; J3490; Q9967

== ENCOUNTER 2024-12-30 18:15 | Emergency (ER) | payer MEDICARE, BC ==
[2024-12-30 20:16] LABS: HEMATOCRIT 28.7 % (38.4-49.7); HEMOGLOBIN 9.7 g/dL (12.9-16.9); MEAN CORPUSCULAR HEMOGLOBIN 30.9 pg (31.6-35.5); MEAN CORPUSCULAR HGB CONC 33.8 g/dL (31.6-35.5); MEAN CORPUSCULAR VOLUME 91.4 fL (81.4-99.0); PLATELET COUNT,PLT 63 K/uL (130-375); RED BLOOD CELL COUNT 3.14 M/uL (4.14-5.76)
[2024-12-30 20:22] LABS: WHITE BLOOD CELL COUNT,WBC 0.7 K/uL (3.2-11.0)
[2024-12-30 20:30] LABS: CALCIUM 8.7 mg/dL (8.5-10.1); CREATININE 0.9 mg/dL (0.8-1.3); EST CRCL DRUG DOSING (CG) 68.5 mL/min; POTASSIUM,K 3.9 mmol/L (3.6-5.2)
[2024-12-30 20:33] LABS: ANION GAP 12.9 mmol/L (5.0-14.0)
[2024-12-30] MEDS: HYDROmorphone 0.5 MG/0.5 ML Syringe IVPUSH ONE (21:05)
[2024-12-30 21:14] LABS: BAND ABSOLUTE MAN 0.02 K/uL; BAND PERCENT MAN 3 % (5-11); LYMPHOCYTES ABSOLUTE MAN 0.52 K/uL (0.8-3.3); LYMPHOCYTES PERCENT MAN 74 % (24-44); METAMYELOCYTE ABSOLUTE MAN 0.02 K/uL; METAMYELOCYTE PERCENT MAN 3 %; MONOCYTES ABSOLUTE MAN 0.03 K/uL (0.20-0.90); MONOCYTES PERCENT MAN 4 % (2-6); MYELOCYTE ABSOLUTE MAN 0.01; MYELOCYTE PERCENT MAN 1 %; PROMYELOCYTE ABSOLUTE MAN 0.01 K/uL; PROMYELOCYTE PERCENT MAN 1 %; SEG NEUTROPHILS PERCENT MAN 14 % (36-66)
[2024-12-30 21:15] LABS: ANISOCYTOSIS MARKED
[2024-12-30 21:16] LABS: OVALOCYTES FEW
[2024-12-30 21:18] LABS: TEARDROP CELLS FEW
[2024-12-30 21:20] LABS: BURR CELLS OCCASIONAL; MICROCYTOSIS MODERATE
[2024-12-30 21:23] LABS: SPHEROCYTES RARE
[2024-12-30 21:24] LABS: POIKILOCYTOSIS MODERATE
[2024-12-30 21:25] LABS: SCHISTOCYTES RARE
[2024-12-30] MEDS: Iopamidol 612 MG/ML 100 ML Bottle IV SCH (23:36)
[2024-12-30] MEDS: Sodium Chloride 0.9% 100 ML IV SCH (23:37)
[2024-12-30] MEDS: Sodium Chloride 0.9% 10 ML Syringe FLUSH PRN (23:37)
[2024-12-31 00:29] VITALS: BP 151/81; PULSE 79
== END 2024-12-31 01:29 | disposition other institution (70) ==
LOC: JP.ED 18:15
DX: S22.42XA Multiple fractures of ribs, left side, initial encounter for closed fracture (principal); D61.818 Other pancytopenia; I25.10 Atherosclerotic heart disease of native coronary artery without angina pectoris; Z88.8 Allergy status to other drugs, medicaments and biological substances; I25.2 Old myocardial infarction; Z95.5 Presence of coronary angioplasty implant and graft; Z86.16 Personal history of COVID-19; Z79.82 Long term (current) use of aspirin; Z79.899 Other long term (current) drug therapy; Z87.891 Personal history of nicotine dependence; W00.0XXA Fall on same level due to ice and snow, initial encounter; Y93.89 Activity, other specified
CPT/HCPCS: 36415; 70450; 71250; 72125; 73502; 73562; 74177; 76377; 80048; 85025; 96374; 99285; Q9967

== ENCOUNTER 2025-01-05 20:50 | Emergency (ER) | payer MEDICARE, BC ==
[2025-01-05 21:31] LABS: HEMATOCRIT 31.2 % (38.4-49.7); HEMOGLOBIN 10.2 g/dL (12.9-16.9); MEAN CORPUSCULAR HEMOGLOBIN 30.5 pg (31.6-35.5); MEAN CORPUSCULAR HGB CONC 32.7 g/dL (31.6-35.5); MEAN CORPUSCULAR VOLUME 93.4 fL (81.4-99.0); PLATELET COUNT,PLT 82 K/uL (130-375); RED BLOOD CELL COUNT 3.34 M/uL (4.14-5.76)
[2025-01-05 21:53] LABS: WHITE BLOOD CELL COUNT,WBC 0.7 K/uL (3.2-11.0)
[2025-01-05 22:10] LABS: A/G RATIO 0.8 (1.2-2.2); ALANINE AMINOTRANSFERASE,ALT 62 U/L (12-78); ALKALINE PHOSPHATASE 83 U/L (46-116); ANION GAP 10.3 mmol/L (5.0-14.0); ASPARTATE AMNIOTRANSFERASE,AST 59 U/L (15-37); BILIRUBIN TOTAL 0.8 mg/dL (0.2-1.0); BLOOD UREA NITROGEN,BUN 18 mg/dL (7-18); CALCIUM 9.2 mg/dL (8.5-10.1); CARBON DIOXIDE,CO2 25 mmol/L (21-32); CHLORIDE,CL 106 mmol/L (100-108); ESTIMATED GFR 73 mL/min (>60); GLUCOSE RANDOM 138 mg/dL (74-106); POTASSIUM,K 3.6 mmol/L (3.6-5.2); PROTEIN TOTAL,TP 6.8 g/dL (6.4-8.2); SODIUM,NA 141 mmol/L (140-148); TROPONIN I HIGH SENSITIVITY 8.9 pg/mL (<=60.3)
[2025-01-05] MEDS: Albuterol/Ipratropium 3.0-0.5 MG/3 ML Neb Soln NEB ONE (22:13)
[2025-01-05 22:23] LABS: BAND ABSOLUTE MAN 0.01 K/uL; BAND PERCENT MAN 1 % (5-11); LYMPHOCYTES PERCENT MAN 72 % (24-44); MONOCYTES ABSOLUTE MAN 0.01 K/uL (0.20-0.90); MONOCYTES PERCENT MAN 1 % (2-6); NEUTROPHILS ABSOLUTE MAN 0.18 K/uL (1.0-7.6); SEG NEUTROPHILS PERCENT MAN 26 % (36-66)
[2025-01-05 22:24] LABS: ATYPICAL LYMPHOCYTES MODERATE
[2025-01-05] MEDS: Sodium Chloride 0.9% 1,000 ML IV SCH (23:01)
[2025-01-05] MEDS: Piperacillin/Tazobactam 4.5 GM in Sodium Chloride 0.9% 100 ML IV ONE (23:33)
[2025-01-05] MEDS: Acetaminophen 500 MG Tab PO ONE (23:40)
[2025-01-06] MEDS: VANCOmycin 1 GM in Sodium Chloride 0.9% 250 ML IV ONE (00:47)
[2025-01-06] MEDS: Ibuprofen 400 MG Tab PO ONE (02:50)
[2025-01-06 03:04] VITALS: PULSE 95
[2025-01-06 06:35] VITALS: BP 102/52
== END 2025-01-06 08:29 ==
LOC: JP.ED 20:50
DX: A41.9 Sepsis, unspecified organism (principal); J18.9 Pneumonia, unspecified organism; D61.818 Other pancytopenia; I25.10 Atherosclerotic heart disease of native coronary artery without angina pectoris; E78.00 Pure hypercholesterolemia, unspecified; I25.2 Old myocardial infarction; Z88.8 Allergy status to other drugs, medicaments and biological substances; Z79.82 Long term (current) use of aspirin; Z79.51 Long term (current) use of inhaled steroids; Z79.899 Other long term (current) drug therapy; Z95.5 Presence of coronary angioplasty implant and graft; Z86.16 Personal history of COVID-19
CPT/HCPCS: 36415; 71046; 80053; 83605; 83880; 84484; 85025; 87040; 93005; 93010; 94640; 96361; 96365; 96367; 99285; A9270; J2543; J7030; J7050

== ENCOUNTER 2025-02-08 15:10 | Inpatient (IN) | payer MEDICARE, BC ==
[2025-02-08 15:33] LABS: HEMATOCRIT 30.1 % (38.4-49.7); MEAN CORPUSCULAR HEMOGLOBIN 32.7 pg (31.6-35.5); MEAN CORPUSCULAR HGB CONC 33.2 g/dL (31.6-35.5); MEAN CORPUSCULAR VOLUME 98.4 fL (81.4-99.0); PLATELET COUNT,PLT 65 K/uL (130-375); RED BLOOD CELL COUNT 3.06 M/uL (4.14-5.76)
[2025-02-08 15:37] LABS: WHITE BLOOD CELL COUNT,WBC 0.7 K/uL (3.2-11.0)
[2025-02-08 15:52] LABS: A/G RATIO 0.8 (1.2-2.2); ALANINE AMINOTRANSFERASE,ALT 30 U/L (12-78); ALBUMIN 2.7 g/dL (3.4-5.0); ALKALINE PHOSPHATASE 95 U/L (46-116); ASPARTATE AMNIOTRANSFERASE,AST 36 U/L (15-37); BILIRUBIN TOTAL 0.4 mg/dL (0.2-1.0); BLOOD UREA NITROGEN,BUN 11 mg/dL (7-18); CALCIUM 8.7 mg/dL (8.5-10.1); CARBON DIOXIDE,CO2 25 mmol/L (21-32); CHLORIDE,CL 106 mmol/L (100-108); EST CRCL DRUG DOSING (CG) 61.65 mL/min; ESTIMATED GFR 73 mL/min (>60); GLUCOSE RANDOM 107 mg/dL (74-106); POTASSIUM,K 3.7 mmol/L (3.6-5.2); PROTEIN TOTAL,TP 6.2 g/dL (6.4-8.2); SODIUM,NA 139 mmol/L (140-148)
[2025-02-08 15:54] LABS: ANION GAP 11.7 mmol/L (5.0-14.0)
[2025-02-08] MEDS: Cefepime 2 GM in Sodium Chloride 0.9% 50 ML IV ONE (15:58)
[2025-02-08 16:03] LABS: ATYPICAL LYMPHOCYTES MODERATE; BAND ABSOLUTE MAN 0.01 K/uL; BAND PERCENT MAN 1 % (5-11); LYMPHOCYTES ABSOLUTE MAN 0.48 K/uL (0.8-3.3); LYMPHOCYTES PERCENT MAN 69 % (24-44); MONOCYTES ABSOLUTE MAN 0.03 K/uL (0.20-0.90); MONOCYTES PERCENT MAN 4 % (2-6); NEUTROPHILS ABSOLUTE MAN 0.18 K/uL (1.0-7.6); SEG NEUTROPHILS PERCENT MAN 26 % (36-66)
[2025-02-08] MEDS: Levofloxacin/Dextrose 5%-Water 750 MG in Premix Bag 1 BAG IV ONE (17:06)
[2025-02-08] MEDS ORDERED: Sennosides/Docusate Sodium 50-8.6 MG Tab PO PRN (17:32)
[2025-02-08] MEDS ORDERED: Ondansetron 4 MG/2 ML SDV IV PRN (17:32)
[2025-02-08] MEDS ORDERED: LORazepam 0.5 MG Tab PO PRN (17:32)
[2025-02-08] MEDS ORDERED: Ondansetron 4 MG Tab.DIS PO PRN (17:32)
[2025-02-08] MEDS ORDERED: Magnesium Hydroxide 400 MG/5 ML Susp 30 ML Cup PO PRN (17:32)
[2025-02-08] MEDS: Sodium Chloride 0.9% 1,000 ML IV SCH (18:14)
[2025-02-08] MEDS: Acetaminophen 325 MG Tab PO PRN (18:25)
[2025-02-08 18:48] LABS: APPEARANCE,URINE CLEAR (CLEAR); BILIRUBIN,URINE NEGATIVE (NEGATIVE); COLOR,URINE YELLOW (YELLOW); GLUCOSE,URINE NEGATIVE (NEGATIVE); KETONES,URINE NEGATIVE (NEGATIVE); LEUKOCYTE ESTERASE,URINE NEGATIVE (NEGATIVE); NITRITE,URINE NEGATIVE (NEGATIVE); OCCULT BLOOD,URINE NEGATIVE (NEGATIVE); PROTEIN,URINE 30 mg/dL (NEGATIVE); UROBILINOGEN,URINE 0.2 EU/dL (0.2-1.0)
[2025-02-08 18:53] LABS: AMORPHOUS SEDIMENT,URINE NOT SEEN; BACTERIA,URINE FEW; EPITHELIAL CELLS,URINE NOT SEEN; MUCUS,URINE FEW; RBC,URINE 0-5 (0-5); WBC,URINE 0-5 (0-5)
[2025-02-08] MEDS: Lactobacillus Rhamnosus GG (Probiotic) Cap PO SCH (20:06)
[2025-02-08] MEDS: traZODone 50 MG Tab PO SCH (20:06)
[2025-02-08] MEDS: Magnesium Oxide 400 MG Tab PO ONE (20:07)
[2025-02-09] MEDS: Cefepime 2 GM in Sodium Chloride 0.9% 50 ML IV SCH (00:36)
[2025-02-09 05:52] LABS: HEMATOCRIT 27.2 % (38.4-49.7); HEMOGLOBIN 9.1 g/dL (12.9-16.9); MEAN CORPUSCULAR HEMOGLOBIN 33.1 pg (31.6-35.5); MEAN CORPUSCULAR HGB CONC 33.5 g/dL (31.6-35.5); MEAN CORPUSCULAR VOLUME 98.9 fL (81.4-99.0); PLATELET COUNT,PLT 52 K/uL (130-375); RED BLOOD CELL COUNT 2.75 M/uL (4.14-5.76)
[2025-02-09 06:06] LABS: ANION GAP 11.3 mmol/L (5.0-14.0); CALCIUM 8.2 mg/dL (8.5-10.1); CREATININE 0.8 mg/dL (0.8-1.3); EST CRCL DRUG DOSING (CG) 77.06 mL/min; POTASSIUM,K 3.8 mmol/L (3.6-5.2)
[2025-02-09 06:25] LABS: WHITE BLOOD CELL COUNT,WBC 0.7 K/uL (3.2-11.0)
[2025-02-09 06:28] LABS: BLAST ABSOLUTE MAN 0.02 K/uL (0-0); BLASTS PERCENT MAN 3 %; EOSINOPHILS ABSOLUTE MAN 0.01 K/uL (0.00-0.40); EOSINOPHILS PERCENT MAN 1 % (2-4); LYMPHOCYTES ABSOLUTE MAN 0.08 K/uL (0.8-3.3); LYMPHOCYTES PERCENT MAN 11 % (24-44); MONOCYTES ABSOLUTE MAN 0.07 K/uL (0.20-0.90); MONOCYTES PERCENT MAN 10 % (2-6); NEUTROPHILS ABSOLUTE MAN 0.53 K/uL (1.0-7.6); OVALOCYTES FEW; SEG NEUTROPHILS PERCENT MAN 75 % (36-66); TARGET CELLS FEW
[2025-02-09 06:29] LABS: MICROCYTOSIS FEW; POIKILOCYTOSIS MODERATE
[2025-02-09] MEDS: Acyclovir 200 MG Cap PO SCH (08:20)
[2025-02-09] MEDS: Pantoprazole 40 MG Tab.CR PO SCH (08:20)
[2025-02-09] MEDS: Albuterol 0.083% 2.5 MG/3 ML Neb Soln NEB PRN (10:06)
[2025-02-09] MEDS: Acetaminophen/HYDROcodone 325-5 MG Tab PO PRN (16:28)
[2025-02-09] MEDS: Levofloxacin 250 MG Tab PO SCH (16:30)
[2025-02-10 05:36] VITALS: BP 113/48
[2025-02-10 06:00] LABS: HEMATOCRIT 26.7 % (38.4-49.7); HEMOGLOBIN 9.1 g/dL (12.9-16.9); MEAN CORPUSCULAR HEMOGLOBIN 33.7 pg (31.6-35.5); MEAN CORPUSCULAR HGB CONC 34.1 g/dL (31.6-35.5); MEAN CORPUSCULAR VOLUME 98.9 fL (81.4-99.0); PLATELET COUNT,PLT 44 K/uL (130-375)
[2025-02-10 06:26] LABS: WHITE BLOOD CELL COUNT,WBC 0.6 K/uL (3.2-11.0)
[2025-02-10 06:52] LABS: LYMPHOCYTES PERCENT MAN 84 % (24-44); MONOCYTES ABSOLUTE MAN 0.02 K/uL (0.20-0.90); MONOCYTES PERCENT MAN 4 % (2-6); NEUTROPHILS ABSOLUTE MAN 0.07 K/uL (1.0-7.6); SEG NEUTROPHILS PERCENT MAN 12 % (36-66)
[2025-02-10 06:53] LABS: ATYPICAL LYMPHOCYTES MODERATE
[2025-02-10 06:54] LABS: ANISOCYTOSIS FEW
[2025-02-10 11:05] VITALS: PULSE 68
== END 2025-02-10 11:28 | disposition home or self-care (01) | DRG 809 ==
LOC: JP.ED 15:10 → JP.MS 16:51
PROVIDERS: ADMIT Internal Medicine; ATTEND Internal Medicine
DX: D70.9 Neutropenia, unspecified (principal); C92.A2 Acute myeloid leukemia with multilineage dysplasia, in relapse; D84.9 Immunodeficiency, unspecified; R50.81 Fever presenting with conditions classified elsewhere; Z66 Do not resuscitate; Z51.5 Encounter for palliative care; H91.90 Unspecified hearing loss, unspecified ear; H54.7 Unspecified visual loss; I25.10 Atherosclerotic heart disease of native coronary artery without angina pectoris; E78.00 Pure hypercholesterolemia, unspecified; K21.9 Gastro-esophageal reflux disease without esophagitis; M10.9 Gout, unspecified; D69.6 Thrombocytopenia, unspecified; Z88.8 Allergy status to other drugs, medicaments and biological substances; Z79.82 Long term (current) use of aspirin; Z79.51 Long term (current) use of inhaled steroids; Z79.899 Other long term (current) drug therapy; I25.2 Old myocardial infarction; Z95.5 Presence of coronary angioplasty implant and graft; Z86.0100 Personal history of colon polyps, unspecified; Z87.81 Personal history of (healed) traumatic fracture; Z98.49 Cataract extraction status, unspecified eye; Z90.89 Acquired absence of other organs; Z90.49 Acquired absence of other specified parts of digestive tract; Z98.890 Other specified postprocedural states
CPT/HCPCS: 36415; 71046 ×2; 80053; 81001; 83605; 85025; 86140; 87040 ×2; 87428; 96365; 96367; 99285; J0133; J0692; 80048; 94640; 97162-GP; 99222; 99232; 99238; A9270-GY; J7030

== ENCOUNTER 2025-02-11 20:26 | Emergency (ER) | payer MEDICARE, BC ==
[2025-02-11] MEDS: Sodium Chloride 0.9% 1,000 ML IV SCH (20:56)
[2025-02-11 20:57] LABS: HEMATOCRIT 27.8 % (38.4-49.7); HEMOGLOBIN 9.6 g/dL (12.9-16.9); MEAN CORPUSCULAR HEMOGLOBIN 33.4 pg (31.6-35.5); MEAN CORPUSCULAR HGB CONC 34.5 g/dL (31.6-35.5); MEAN CORPUSCULAR VOLUME 96.9 fL (81.4-99.0); PLATELET COUNT,PLT 58 K/uL (130-375); RED BLOOD CELL COUNT 2.87 M/uL (4.14-5.76)
[2025-02-11 21:01] LABS: WHITE BLOOD CELL COUNT,WBC 0.7 K/uL (3.2-11.0)
[2025-02-11 21:23] LABS: A/G RATIO 0.8 (1.2-2.2); ALANINE AMINOTRANSFERASE,ALT 32 U/L (12-78); ALBUMIN 2.6 g/dL (3.4-5.0); ALKALINE PHOSPHATASE 93 U/L (46-116); ANION GAP 18.1 mmol/L (5.0-14.0); ASPARTATE AMNIOTRANSFERASE,AST 45 U/L (15-37); BILIRUBIN TOTAL 0.6 mg/dL (0.2-1.0); BLOOD UREA NITROGEN,BUN 10 mg/dL (7-18); CALCIUM 8.7 mg/dL (8.5-10.1); CARBON DIOXIDE,CO2 21 mmol/L (21-32); CHLORIDE,CL 105 mmol/L (100-108); CREATININE 0.8 mg/dL (0.8-1.3); EST CRCL DRUG DOSING (CG) 77.09 mL/min; ESTIMATED GFR 86 mL/min (>60); GLUCOSE RANDOM 105 mg/dL (74-106); POTASSIUM,K 3.1 mmol/L (3.6-5.2); SODIUM,NA 141 mmol/L (140-148)
[2025-02-11 21:45] LABS: ATYPICAL LYMPHOCYTES MANY; BLAST ABSOLUTE MAN 0.04 K/uL (0-0); BLASTS PERCENT MAN 5 %; EOSINOPHILS ABSOLUTE MAN 0.01 K/uL (0.00-0.40); EOSINOPHILS PERCENT MAN 1 % (2-4); LYMPHOCYTES ABSOLUTE MAN 0.54 K/uL (0.8-3.3); LYMPHOCYTES PERCENT MAN 77 % (24-44); MONOCYTES ABSOLUTE MAN 0.04 K/uL (0.20-0.90); MONOCYTES PERCENT MAN 6 % (2-6); NEUTROPHILS ABSOLUTE MAN 0.08 K/uL (1.0-7.6); SEG NEUTROPHILS PERCENT MAN 11 % (36-66)
[2025-02-11 21:46] LABS: MICROCYTOSIS MANY; POIKILOCYTOSIS MODERATE
[2025-02-11 22:35] VITALS: BP 141/67; PULSE 61
[2025-02-11] MEDS: Potassium Chloride 20 MEQ Tab.ER PO ONE (22:39)
== END 2025-02-11 23:06 | disposition home or self-care (01) ==
LOC: JP.ED 20:26
DX: E86.0 Dehydration (principal); E87.6 Hypokalemia; C92.02 Acute myeloblastic leukemia, in relapse; I25.10 Atherosclerotic heart disease of native coronary artery without angina pectoris; I25.2 Old myocardial infarction; M19.90 Unspecified osteoarthritis, unspecified site; Z88.8 Allergy status to other drugs, medicaments and biological substances; Z79.82 Long term (current) use of aspirin; Z79.899 Other long term (current) drug therapy; Z90.49 Acquired absence of other specified parts of digestive tract
CPT/HCPCS: 36415; 71045; 80053; 83605; 84484; 85025; 93005; 96360; 99284; A9270; J7030

== ENCOUNTER 2025-02-22 11:31 | Emergency (ER) | payer MEDICARE, BC ==
[2025-02-22] MEDS ORDERED: Sodium Chloride 0.9% 10 ML Syringe FLUSH PRN (11:39)
[2025-02-22] MEDS: Aspirin 81 MG Tab.Chew PO ONE (11:53)
[2025-02-22 11:54] LABS: HEMATOCRIT 29.8 % (38.4-49.7); MEAN CORPUSCULAR HEMOGLOBIN 33.3 pg (31.6-35.5); MEAN CORPUSCULAR HGB CONC 33.6 g/dL (31.6-35.5); MEAN CORPUSCULAR VOLUME 99.3 fL (81.4-99.0); PLATELET COUNT,PLT 62 K/uL (130-375); WHITE BLOOD CELL COUNT,WBC 1.3 K/uL (3.2-11.0)
[2025-02-22] MEDS: Nitroglycerin 0.4 MG Tab.SL ONE (11:55)
[2025-02-22] MEDS: Nitroglycerin 0.4 MG Tab.SL SL PRN (11:56)
[2025-02-22] MEDS: Sodium Chloride 0.9% 1,000 ML IV ONE (12:06)
[2025-02-22 12:17] LABS: CREATININE 0.7 mg/dL (0.8-1.3); EST CRCL DRUG DOSING (CG) 88.07 mL/min; POTASSIUM,K 3.4 mmol/L (3.6-5.2); TROPONIN I HIGH SENSITIVITY 12.3 pg/mL (<=60.3)
[2025-02-22 12:19] LABS: ANION GAP 14.4 mmol/L (5.0-14.0)
[2025-02-22 12:29] LABS: LYMPHOCYTES ABSOLUTE MAN 1.14 K/uL (0.8-3.3); LYMPHOCYTES PERCENT MAN 88 % (24-44); MONOCYTES ABSOLUTE MAN 0.08 K/uL (0.20-0.90); MONOCYTES PERCENT MAN 6 % (2-6); NEUTROPHILS ABSOLUTE MAN 0.08 K/uL (1.0-7.6); SEG NEUTROPHILS PERCENT MAN 6 % (36-66)
[2025-02-22] MEDS: Sodium Chloride 0.9% 10 ML Syringe FLUSH PRN (13:21)
[2025-02-22] MEDS: Sodium Chloride 0.9% 100 ML IV ONE (13:21)
[2025-02-22] MEDS: Iopamidol 755 Mg/ML 100 ML Bottle IV SCH (13:22)
[2025-02-22] MEDS: Metoclopramide 10 MG/2 ML SDV IVPUSH ONE (14:45)
[2025-02-22] MEDS: Acetaminophen 500 MG Tab PO ONE (15:52)
[2025-02-22 16:25] VITALS: BP 160/82; PULSE 69
== END 2025-02-22 16:09 | disposition home or self-care (01) ==
LOC: JP.ED 11:31
DX: J18.9 Pneumonia, unspecified organism (principal); C92.02 Acute myeloblastic leukemia, in relapse; I25.10 Atherosclerotic heart disease of native coronary artery without angina pectoris; I25.2 Old myocardial infarction; K21.9 Gastro-esophageal reflux disease without esophagitis; Z90.49 Acquired absence of other specified parts of digestive tract; Z88.8 Allergy status to other drugs, medicaments and biological substances; Z79.51 Long term (current) use of inhaled steroids; Z79.899 Other long term (current) drug therapy
CPT/HCPCS: 36415; 71275; 80048; 84484; 85025; 93005; 96374; 99285; A9270; J2765; J7030; Q9967

== ENCOUNTER 2025-03-11 14:07 | Emergency (ER) | payer MEDICARE, BC ==
[2025-03-11] MEDS: Sodium Chloride 0.9% 1,000 ML IV SCH (15:33)
[2025-03-11] MEDS: Magnesium Citrate Solution 296 ML Bottle PO ONE (15:33)
[2025-03-11 15:35] LABS: HEMATOCRIT 29.3 % (38.4-49.7); HEMOGLOBIN 9.7 g/dL (12.9-16.9); MEAN CORPUSCULAR HEMOGLOBIN 35.1 pg (31.6-35.5); MEAN CORPUSCULAR HGB CONC 33.1 g/dL (31.6-35.5); MEAN CORPUSCULAR VOLUME 106.2 fL (81.4-99.0); PLATELET COUNT,PLT 116 K/uL (130-375); RED BLOOD CELL COUNT 2.76 M/uL (4.14-5.76); WHITE BLOOD CELL COUNT,WBC 1.9 K/uL (3.2-11.0)
[2025-03-11 15:56] LABS: ALANINE AMINOTRANSFERASE,ALT 66 U/L (12-78); ALBUMIN 2.8 g/dL (3.4-5.0); ALKALINE PHOSPHATASE 75 U/L (46-116); ASPARTATE AMNIOTRANSFERASE,AST 31 U/L (15-37); BILIRUBIN TOTAL 0.5 mg/dL (0.2-1.0); BLOOD UREA NITROGEN,BUN 10 mg/dL (7-18); CARBON DIOXIDE,CO2 29 mmol/L (21-32); CHLORIDE,CL 105 mmol/L (100-108); CREATININE 0.7 mg/dL (0.8-1.3); EST CRCL DRUG DOSING (CG) 88.07 mL/min; ESTIMATED GFR 90 mL/min (>60); GLUCOSE RANDOM 123 mg/dL (74-106); PROTEIN TOTAL,TP 5.7 g/dL (6.4-8.2); SODIUM,NA 138 mmol/L (140-148)
[2025-03-11 16:01] LABS: CALCIUM 9.1 mg/dL (8.5-10.1)
[2025-03-11 16:42] LABS: BLAST ABSOLUTE MAN 0.08 K/uL (0-0); BLASTS PERCENT MAN 4 %; LYMPHOCYTES ABSOLUTE MAN 0.74 K/uL (0.8-3.3); LYMPHOCYTES PERCENT MAN 39 % (24-44); MONOCYTES ABSOLUTE MAN 0.13 K/uL (0.20-0.90); MONOCYTES PERCENT MAN 7 % (2-6); NEUTROPHILS ABSOLUTE MAN 0.95 K/uL (1.0-7.6); SEG NEUTROPHILS PERCENT MAN 50 % (36-66)
[2025-03-11 16:43] LABS: ATYPICAL LYMPHOCYTES FEW
[2025-03-11] MEDS: Na Phos,M-B/Na Phos,DI-B 60 ML, Mineral Oil 50 ML, Docusate Sodium 400 MG, Magnesium Ci... RECTAL ONE (16:45)
[2025-03-11 18:25] VITALS: BP 127/78; PULSE 78
== END 2025-03-11 18:47 | disposition home or self-care (01) ==
LOC: JP.ED 14:07
DX: K59.00 Constipation, unspecified (principal); I25.10 Atherosclerotic heart disease of native coronary artery without angina pectoris; E78.00 Pure hypercholesterolemia, unspecified; Z90.49 Acquired absence of other specified parts of digestive tract; Z79.899 Other long term (current) drug therapy; Z88.8 Allergy status to other drugs, medicaments and biological substances
CPT/HCPCS: 36415; 80053; 85025; 96360; 99284; A9270; J7030

== ENCOUNTER 2025-04-15 06:53 | Inpatient (IN) | payer MEDICARE, BC ==
[2025-04-15 07:33] LABS: RED BLOOD CELL COUNT 2.03 M/uL (4.14-5.76); WHITE BLOOD CELL COUNT,WBC 6.0 K/uL (3.2-11.0)
[2025-04-15 07:37] LABS: PLATELET COUNT,PLT 20 K/uL (130-375)
[2025-04-15 07:55] LABS: A/G RATIO 0.7 (1.2-2.2); ALANINE AMINOTRANSFERASE,ALT 21 U/L (12-78); ASPARTATE AMNIOTRANSFERASE,AST 25 U/L (15-37); BILIRUBIN TOTAL 0.8 mg/dL (0.2-1.0); BLOOD UREA NITROGEN,BUN 10 mg/dL (7-18); CARBON DIOXIDE,CO2 28 mmol/L (21-32); CHLORIDE,CL 103 mmol/L (100-108); CREATININE 0.8 mg/dL (0.8-1.3); EST CRCL DRUG DOSING (CG) 77.06 mL/min; ESTIMATED GFR 86 mL/min (>60); GLUCOSE RANDOM 103 mg/dL (74-106); POTASSIUM,K 3.8 mmol/L (3.6-5.2); PROTEIN TOTAL,TP 6.0 g/dL (6.4-8.2); SODIUM,NA 140 mmol/L (140-148)
[2025-04-15 08:06] LABS: BLAST ABSOLUTE MAN 2.34 K/uL (0-0); BLASTS PERCENT MAN 39 %; LYMPHOCYTES ABSOLUTE MAN 0.90 K/uL (0.8-3.3); LYMPHOCYTES PERCENT MAN 15 % (24-44); METAMYELOCYTE ABSOLUTE MAN 0.24 K/uL; METAMYELOCYTE PERCENT MAN 4 %; MONOCYTES ABSOLUTE MAN 2.40 K/uL (0.20-0.90); MONOCYTES PERCENT MAN 40 % (2-6); NEUTROPHILS ABSOLUTE MAN 0.12 K/uL (1.0-7.6); SEG NEUTROPHILS PERCENT MAN 2 % (36-66)
[2025-04-15 09:50] LABS: APPEARANCE,URINE CLEAR (CLEAR); GLUCOSE,URINE NEGATIVE (NEGATIVE); OCCULT BLOOD,URINE NEGATIVE (NEGATIVE)
[2025-04-15 09:58] LABS: EPITHELIAL CELLS,URINE MANY
[2025-04-15] MEDS ORDERED: Sodium Chloride 0.9% 10 ML Syringe FLUSH PRN (10:16)
[2025-04-15] MEDS: Scopalamine 1mg/3day Transdermal Patch TRDERM SCH (14:43)
[2025-04-15] MEDS: Fluticasone NASAL Spray 16 GM Bottle NASBOTH SCH (20:30)
[2025-04-16] MEDS: guaiFENesin/Dextromethorphan 100-10 MG/5 ML Soln 10 ML Cup PO PRN (01:50)
[2025-04-16] MEDS: Alfuzosin 10 MG Tab.ER PO SCH (07:51)
[2025-04-16] MEDS: SCOPOLAMINE PATCH CHECK TOP SCH (08:46)
[2025-04-16] MEDS ORDERED: Mometasone Furoate Nasal Spray 17 GM Canister NAS SCH (13:30)
[2025-04-17] MEDS: LORazepam ORAL Concentrate 1MG/0.5ML U/D SL PRN (15:46)
[2025-04-23] MEDS: Ondansetron 4 MG Tab.DIS PO PRN (07:26)
[2025-04-23] MEDS: Sennosides/Docusate Sodium 50-8.6 MG Tab PO PRN (07:32)
[2025-04-24 10:20] VITALS: BP 91/32; PULSE 97
[2025-04-25] MEDS ORDERED: MORPHINE 100 MG/5 ML BUCCAL SCH
[2025-04-25] MEDS ORDERED: LORAZEPAM 2 MG/ML BUCCAL SCH
== END 2025-04-25 13:20 | disposition home or self-care (01) | DRG 951 ==
LOC: JP.ED 06:53 → JP.MS 11:38 → EEVIPCON 11:38
PROVIDERS: ADMIT Hospitalist; ATTEND Internal Medicine
DX: C92.02 Acute myeloblastic leukemia, in relapse (principal); Z51.5 Encounter for palliative care; J18.9 Pneumonia, unspecified organism; Z79.899 Other long term (current) drug therapy; C92.A2 Acute myeloid leukemia with multilineage dysplasia, in relapse; D61.818 Other pancytopenia; Z66 Do not resuscitate; H91.90 Unspecified hearing loss, unspecified ear; H54.7 Unspecified visual loss; I25.10 Atherosclerotic heart disease of native coronary artery without angina pectoris; E78.00 Pure hypercholesterolemia, unspecified; I25.2 Old myocardial infarction; K21.9 Gastro-esophageal reflux disease without esophagitis; N42.9 Disorder of prostate, unspecified; M19.90 Unspecified osteoarthritis, unspecified site; E86.0 Dehydration; M54.9 Dorsalgia, unspecified; G89.29 Other chronic pain; M10.9 Gout, unspecified; Z90.49 Acquired absence of other specified parts of digestive tract; Z79.52 Long term (current) use of systemic steroids; Z98.890 Other specified postprocedural states; Z98.49 Cataract extraction status, unspecified eye; Z79.82 Long term (current) use of aspirin; Z95.5 Presence of coronary angioplasty implant and graft; Z88.8 Allergy status to other drugs, medicaments and biological substances; Z96.619 Presence of unspecified artificial shoulder joint; Z87.891 Personal history of nicotine dependence
CPT/HCPCS: 36415; 51702; 80053; 81001; 82550; 83605; 84484; 85025; 87040; 99223; 99231; 99232; 99238; 99285; A9270-GY; C1758; J7512; Q0162